=== PATIENT | male | born 1945 | race Caucasian/White ===

== ENCOUNTER 2017-05-28 18:54 | Emergency (ER) | payer OTHER ==
[2017-05-28 19:00] VITALS: TEMP 97.7
[2017-05-28] MEDS ORDERED: LET GEL TOPICAL 1 EA SYR TP ONE (19:17)
--- NOTE | 2017-05-28 19:17 | EDPHY ---
General Narrative: CHIEF COMPLAINT: Fall, nasal laceration, forehead abrasion HISTORY OF PRESENT ILLNESS: Patient presents with spouse at bedside. Approximately 1 hr ago he tripped going up a set of stairs. Says he struck his nose and forehead on a stone next to the stairs. He did not lose consciousness. He has no headache. He has not vomited. His behavior has not changed per his spouse, who was present for the fall. He has no neck pain or stiffness. No chest or back pain. No injuries to the arms or leg. No numbness or tingling. No complaints of any kind other than the laceration to the nose and abrasion to the forehead. These are minimally painful. They are not actively bleeding. He reporting up-to-date on his tetanus. He has no other associated complaints or modifying factors. REVIEW OF SYSTEMS: Ten systems reviewed and are negative unless otherwise noted in the HPI PCP: Dr. Sergio Goss SPECIALISTS: DARIAN Melton, Neurology PAST MEDICAL HISTORY: TBI remotely, dyslipidemia, depression SOCIAL HISTORY: Nonsmoker case will alcohol. No drug use. 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 No depression. No Velazquez sign. No raccoon eyes. Eyes: Pupils equal and round, no conjunctival pallor or injection. EOMs intact. No nystagmus or dysconjugate gaze. ENT, Mouth: Mucous membranes moist airway patent. Nares have dried blood. There is no hematoma of the septum. No deviation of the septum. Neck: Normal inspection, supple, non-tender. Crepitus, step-off or deformity. Painless range of motion in all planes. Respiratory: Lungs are clear to auscultation Cardiovascular: Regular rate and rhythm. No murmur. Gastrointestinal: Abdomen is soft and nontender. No tension or tympany. Back: non-tender, no bony abnormalities Neurological: GCS 15. Cranial nerves 2-12 grossly intact. A&O, nonfocal, normal gait. Strength is symmetric in the 4 limbs. No pronator drift. Normal [id number]. Skin: Warm and dry, no rash superficial abrasion in a regular fashion to the forehead. There is a 2 cm superficial laceration of the nasal bridge, transverse. No exposure of the underlying bone or cartilage. No foreign body. Extremities: Nontender, no pedal edema. Symmetric range of motion of the extremities. Psychiatric: Mood and affect normal DIFFERENTIAL DIAGNOSES: Including but not limited to closed head injury, caution, intracranial hemorrhage, skull fracture, nasal fracture, laceration, abrasion MDM: 7:15 p.m. Mechanical fall from standing with laceration to the nasal bridge, superficial abrasion of the forehead. No loss of consciousness. Completely normal neuro examination without deficit. No headache. No injury elsewhere. Based on the [place] CT head rules, the patient does not warrant emergent CT scan. CT scan is not unreasonable given the patient's age and history. I did offer CT scan of the head and cervical spine but they have declined. We discussed the risks, benefits and alternatives, and they are capable of assuming the risk of this. We will apply topical let to the nasal laceration, and then I will inject lidocaine and proceed with irrigation re-evaluation for the possibility of closure. He is up-to-date on his tetanus. He is in no acute distress. 7:45 p.m. Patient re-evaluated. The wound has been cleaned and there is distraction of the wound margins that warrants suture repair. I have administered further lidocaine. I will re-irrigated and close the wound. 8:03 p.m. Wound has been suture repaired without complication. Wound borders were approximated well. There was no exposure of underlying nasal bone or cartilage. There may be an underlying nasal fracture, but if so his septum is well aligned and there is no septal hematoma. We discussed ENT follow-up for outpatient care for the possibility of nasal fracture, but he does not want to the imaging done at this time. We discussed daily wound care. We discussed ED precautions for the head injury given that we did not perform a CT scan. The patient's spouse are comfortable this plan and discharged home stable condition. PROCEDURE: Laceration repair Consent: Verbal Location: Nasal bridge Length of repair: 2 cm Complexity: Simple Layer involvement: Single Anesthesia: Topical let and 1% lidocaine plain, 3 mL Irrigation: Extensive Debridement: None Procedure description: Following good anesthesia, the wound was copiously irrigated. Wound bed was explored with a sterile glove, and there is no foreign body noted. There is no exposure of the underlying nasal bone or cartilage. Wound borders were approximated well with good hemostasis. Tolerated well without complication. Suture/Staple material: 6-0 Prolene, 3 simple interrupted sutures Wound care: Routine as discussed Suture/Staple removal: 5-7 Days SUPERVISION: Patient was independently examined, but I discussed the case with my secondary supervising physician Dr. Jolly - History Smoking Status: Never smoked - Objective Vital Signs: Initial Vital Signs Temperature (C) 97.7 F 05/28/17 18:54 Heart Rate 65 05/28/17 18:54 Respiratory Rate 16 05/28/17 18:54 Blood Pressure 168/88 H 05/28/17 18:54 O2 Sat (%) 93 05/28/17 18:54 O2 Delivery Mode Room Air Allergies/Adverse Reactions: No Known Allergies Allergy (Unverified 07/01/12 09:05) Home Medications: Medication Instructions Recorded levETIRAcetam [Keppra 500 mg (RX)] 500 mg PO BID 07/01/12 Escitalopram Oxalate 05/28/17 Medications Given: Discontinued Medications Tetracaine/Epinephrine/Lidocaine (Let Gel Topical) 1 ea TP EDNOW ONE Stop: 05/28/17 19:18 Last Admin: 05/28/17 19:21 Dose: 1 ea Departure - Departure Disposition: Home, Routine, Self-Care Clinical Impression: Nasal laceration Qualifiers: Encounter type: initial encounter Qualified Code(s): S01.21XA - Laceration without foreign body of nose, initial encounter Closed head injury Qualifiers: Encounter type: initial encounter Qualified Code(s): S09.90XA - Unspecified injury of head, initial encounter Condition: Good Instructions: Care For Your Stitches (DC), Nasal Fracture (ED), Laceration (ED) , Head Injury (ED) Additional Instructions: 1. Apply ice as needed 20 min on, 20 min off 2. [id number] anti-inflammatories as discussed 3. Contact primary care physician and the on-call Ear Nose and Throat physician as discussed and provided 4. Strict ED precautions for head injury as discussed Referrals: Sergio Goss MD [Primary Care Provider] - As per Instructions Fartun Katz MD [Medical Doctor] - As per Instructions
[2017-05-28 20:16] VITALS: BP 141/89; PULSE 62; RESP 15; O2SAT 92
== END 2017-05-28 20:15 | disposition home or self-care (01) ==
PROC: 09QKXZZ Repair Nasal Mucosa and Soft Tissue, External Approach (ICD-10-PCS; principal; 2017-05-28)
DX: S01.21XA Laceration without foreign body of nose, initial encounter (principal); S09.90XA Unspecified injury of head, initial encounter; W01.198A Fall on same level from slipping, tripping and stumbling with subsequent striking against other object, initial encounter; Y99.8 Other external cause status; Y93.89 Activity, other specified

== ENCOUNTER → 2018-03-15 | Outpatient (CLI) | payer OTHER ==
[~2018-03-15] MED LIST: IOPAMIDOL (ISOVUE-300) 150 ML BTL ONE
== END ==
LOC: FIMAGING 14:33
PROVIDERS: ATTEND Physician Assistant Medical
DX: N40.1 Benign prostatic hyperplasia with lower urinary tract symptoms (principal); K86.89 Other specified diseases of pancreas
CPT/HCPCS: 74178; Q9967; 82565-PO

== ENCOUNTER → 2018-11-01 | Outpatient (CLI) | payer OTHER | LOC: FIMAGING 10:19 ==